=== PATIENT | male | born 1990 | race Caucasian/White ===

== ENCOUNTER 2017-12-17 13:31 | Emergency (ER) | payer BC, OTHER ==
[2017-12-17] MEDS: ONDANSETRON 4 MG INJ IV ×2 (13:56→14:12)
[2017-12-17] MEDS: HYDROmorphONE 1 MG/ML SYG IV ×2 (13:56→14:12)
[2017-12-17] MEDS: SOD CHLORIDE 0.9% 1,000 ML IV (13:57)
[2017-12-17] MEDS: DEXAMETHASONE 10 MG/ML 1 ML INJ IV (13:59)
[2017-12-17 14:00] LABS: ADD MAN DIFF? NO
[2017-12-17 14:01] LABS: BASOPHILS % 0.3 % (0.0-2.0); EOSINOPHILS % 0.2 % (0.0-7.0); HEMOGLOBIN 15.6 g/dl (14.0-18.0); LYMPHOCYTES # 1.9 10^3/ul (0.8-2.9); LYMPHOCYTES % 15.4 % (15.0-51.0); MEAN CORPUSCULAR HEMOGLOBIN 31.5 pg (29.0-33.0); MEAN CORPUSCULAR HGB CONC 34.7 g/dl (32.0-37.0); MEAN CORPUSCULAR VOLUME 90.9 fl (82.0-101.0); MEAN PLATELET VOLUME 10.2 fl (7.4-10.4); MONOCYTE # 0.4 10^3/ul (0.3-0.9); MONOCYTES % 3.1 % (0.0-11.0); NEUTROPHIL # 9.7 10^3/ul (1.6-7.5); NEUTROPHILS % 80.5 % (39.0-77.0); PLATELET COUNT 313 10^3/UL (140-415); RED BLOOD COUNT 4.95 10^6/ul (4.70-6.10); RED CELL DISTRIBUTION WIDTH 12.5 % (11.5-14.5)
[2017-12-17] MEDS ORDERED: LORAZEPAM 2 MG INJ (14:09)
[2017-12-17] MEDS: LORAZEPAM 2 MG INJ IV ×2 (14:11→14:12)
[2017-12-17] MEDS: HYDROmorphONE 0.5 MG/0.5 ML SYG IV (14:12)
[2017-12-17 14:20] LABS: CHLORIDE 109 mmol/L (97-110); POTASSIUM 4.3 mmol/L (3.5-5.1); SODIUM 146 mmol/L (135-144)
[2017-12-17 14:27] LABS: ALANINE AMINOTRANSFERASE 24 IU/L (13-69); ALBUMIN/GLOBULIN RATIO 1.16; ALKALINE PHOSPHATASE 75 IU/L (42-121); ASPARTATE AMINO TRANSFERASE 30 IU/L (15-46); BLOOD UREA NITROGEN 12 mg/dl (7-20); CALCIUM 10.7 mg/dl (8.4-10.2); CREATININE 0.96 mg/dl (0.61-1.24); GLUCOSE 138 mg/dl (70-220); LIPASE 219 U/L (23-300); TOTAL PROTEIN 9.3 g/dl (6.1-8.1)
[2017-12-17 14:47] LABS: ANION GAP 17 (8-16); CARBON DIOXIDE 24 mmol/L (21-31)
[2017-12-17] MEDS: IOHEXOL 300MG/ML 150 ML BTL (15:10)
[2017-12-17] MEDS: SOD CHLORIDE 0.9% 100 ML (15:10)
== END 2017-12-17 18:07 | disposition home or self-care (01) ==
LOC: E/R 13:31
DX: K50.919 Crohn's disease, unspecified, with unspecified complications (principal)
CPT/HCPCS: 36415; 74177; 80053; 83690; 85025; 96374; 96375; 96376; 99285-25

== ENCOUNTER 2018-01-06 13:24 | Emergency (ER) | payer BC ==
[2018-01-06 13:56] LABS: ADD MAN DIFF? NO
[2018-01-06 14:02] LABS: BASOPHIL # 0.1 10^3/ul (0.0-0.1); BASOPHILS % 0.6 % (0.0-2.0); EOSINOPHILS % 0.3 % (0.0-7.0); HEMATOCRIT 42.9 % (42.0-52.0); HEMOGLOBIN 14.6 g/dl (14.0-18.0); LYMPHOCYTES # 1.6 10^3/ul (0.8-2.9); LYMPHOCYTES % 11.1 % (15.0-51.0); MEAN CORPUSCULAR HEMOGLOBIN 30.8 pg (29.0-33.0); MEAN CORPUSCULAR VOLUME 90.5 fl (82.0-101.0); MEAN PLATELET VOLUME 10.4 fl (7.4-10.4); MONOCYTE # 0.5 10^3/ul (0.3-0.9); MONOCYTES % 3.8 % (0.0-11.0); NEUTROPHIL # 11.8 10^3/ul (1.6-7.5); NEUTROPHILS % 83.9 % (39.0-77.0); PLATELET COUNT 296 10^3/UL (140-415); RED BLOOD COUNT 4.74 10^6/ul (4.70-6.10); RED CELL DISTRIBUTION WIDTH 12.5 % (11.5-14.5)
[2018-01-06] MEDS: ONDANSETRON 4 MG INJ IV ×2 (14:02→15:16)
[2018-01-06] MEDS: HYDROmorphONE 0.5 MG/0.5 ML SYG IV ×2 (14:03→15:11)
[2018-01-06] MEDS: SOD CHLORIDE 0.9% 1,000 ML IV (14:03)
[2018-01-06] MEDS: LORAZEPAM 2 MG INJ IV (14:18)
[2018-01-06 14:21] LABS: ALBUMIN 5.1 g/dl (3.3-4.9); ALBUMIN/GLOBULIN RATIO 1.37; ALKALINE PHOSPHATASE 71 IU/L (42-121); ANION GAP 18 (8-16); ASPARTATE AMINO TRANSFERASE 29 IU/L (15-46); BILIRUBIN,INDIRECT 0.6 mg/dl (0-1.1); BILIRUBIN,TOTAL 0.6 mg/dl (0.2-1.3); BLOOD UREA NITROGEN 11 mg/dl (7-20); CALCIUM 10.3 mg/dl (8.4-10.2); CARBON DIOXIDE 24 mmol/L (21-31); CHLORIDE 108 mmol/L (97-110); CREATININE 0.86 mg/dl (0.61-1.24); GLUCOSE 129 mg/dl (70-220); LIPASE 206 U/L (23-300); POTASSIUM 4.5 mmol/L (3.5-5.1); SODIUM 145 mmol/L (135-144); TOTAL PROTEIN 8.8 g/dl (6.1-8.1)
[2018-01-06 14:32] LABS: ETHANOL < 10.0 mg/dl
[2018-01-06 14:47] LABS: ALANINE AMINOTRANSFERASE 27 IU/L (13-69)
[2018-01-06 15:12] LABS: URINE PH (Dip) POC 5.5 (5.0-8.5)
[2018-01-06 15:12] LABS: URINE BLOOD (Dip) POC Negative (NEGATIVE); URINE GLUCOSE (Dip) POC Negative (NEGATIVE); URINE KETONES (Dip) POC Trace (NEGATIVE); URINE LEUKOCYTE EST (Dip) POC Negative (NEGATIVE); URINE NITRITE (Dip) POC Negative (NEGATIVE); URINE TOTAL PROTEIN POC Negative (NEGATIVE)
[2018-01-06 15:43] LABS: AMPHETAMINE/METHAMPHETAMINE Negative (NEGATIVE); BARBITURATES Negative (NEGATIVE); CANNABINOIDS Positive (NEGATIVE); COCAINE Negative (NEGATIVE)
[2018-01-06 15:45] LABS: BENZODIAZEPINES Positive (NEGATIVE); OPIATES Positive (NEGATIVE)
== END 2018-01-06 15:44 | disposition home or self-care (01) ==
LOC: E/R 13:24
DX: R10.9 Unspecified abdominal pain (principal); F41.9 Anxiety disorder, unspecified; R11.10 Vomiting, unspecified
CPT/HCPCS: 36415; 80053; 80307; 81003; 83690; 85025; 96374; 96375; 96376; 99284-25

== ENCOUNTER 2018-04-21 15:23 | Emergency (ER) | payer BC ==
[2018-04-21 16:54] LABS: ADD MAN DIFF? NO
[2018-04-21 16:56] LABS: WHITE BLOOD COUNT 13.9 10^3/ul (4.8-10.8)
[2018-04-21 16:56] LABS: BASOPHIL # 0.1 10^3/ul (0.0-0.1); BASOPHILS % 0.4 % (0.0-2.0); EOSINOPHILS % 0.1 % (0.0-7.0); HEMATOCRIT 41.5 % (42.0-52.0); HEMOGLOBIN 14.5 g/dl (14.0-18.0); LYMPHOCYTES # 1.6 10^3/ul (0.8-2.9); LYMPHOCYTES % 11.4 % (15.0-51.0); MEAN CORPUSCULAR HEMOGLOBIN 30.9 pg (29.0-33.0); MEAN CORPUSCULAR HGB CONC 34.9 g/dl (32.0-37.0); MEAN CORPUSCULAR VOLUME 88.5 fl (82.0-101.0); MEAN PLATELET VOLUME 10.1 fl (7.4-10.4); MONOCYTE # 0.5 10^3/ul (0.3-0.9); MONOCYTES % 3.5 % (0.0-11.0); NEUTROPHIL # 11.7 10^3/ul (1.6-7.5); NEUTROPHILS % 84.2 % (39.0-77.0); PLATELET COUNT 344 10^3/UL (140-415); RED BLOOD COUNT 4.69 10^6/ul (4.70-6.10); RED CELL DISTRIBUTION WIDTH 12.6 % (11.5-14.5)
[2018-04-21] MEDS: LIDOCAINE/MYLANTA 40 ML BTL PO (17:20)
[2018-04-21] MEDS: HYDROmorphONE 0.5 MG/0.5 ML SYG IV (17:21)
[2018-04-21] MEDS: SOD CHLORIDE 0.9% 1,000 ML IV (17:21)
[2018-04-21] MEDS: ONDANSETRON 4 MG INJ IV (17:21)
[2018-04-21 17:27] LABS: ALANINE AMINOTRANSFERASE 17 IU/L (13-69); ALBUMIN 5.4 g/dl (3.3-4.9); ALBUMIN/GLOBULIN RATIO 1.35; ALKALINE PHOSPHATASE 86 IU/L (42-121); ANION GAP 17 (5-13); ASPARTATE AMINO TRANSFERASE 33 IU/L (15-46); BILIRUBIN,INDIRECT 0.7 mg/dl (0-1.1); BILIRUBIN,TOTAL 0.7 mg/dl (0.2-1.3); BLOOD UREA NITROGEN 12 mg/dl (7-20); CALCIUM 10.9 mg/dl (8.4-10.2); CARBON DIOXIDE 22 mmol/L (21-31); CHLORIDE 102 mmol/L (97-110); CREATININE 0.95 mg/dl (0.61-1.24); Estimated GFR > 60 mL/min (>60); GLUCOSE 141 mg/dl (70-220); LIPASE 231 U/L (23-300); POTASSIUM 4.3 mmol/L (3.5-5.1); SODIUM 141 mmol/L (135-144); TOTAL PROTEIN 9.4 g/dl (6.1-8.1)
[2018-04-21] MEDS ORDERED: LORAZEPAM 2 MG INJ (17:30)
[2018-04-21] MEDS: LORAZEPAM 2 MG INJ IV (17:33)
[2018-04-21 17:53] LABS: ETHANOL < 10.0 mg/dl (0-0)
== END 2018-04-21 18:26 | disposition home or self-care (01) ==
LOC: E/R 15:23
DX: R10.13 Epigastric pain (principal); F41.9 Anxiety disorder, unspecified
CPT/HCPCS: 36415; 80053; 80307; 83690; 85025; 96374; 96375; 99284-25